=== PATIENT | male | born 1975 | race African-American/Black ===

== ENCOUNTER 2017-08-23 18:29 | Inpatient (IN) | payer OTHER ==
[2017-08-21 23:00] VITALS: BP 145/78
[~2017-08-23] VITALS: Ht 175.3 cm; Wt 114.8 kg
--- NOTE | 2017-08-23 18:34 | ED.ADGEN ---
Past History Past Medical History: Cancer, Hypertension Adult General Chief Complaint Chief Complaint ".. I am getting cellulitis again..." HPI HPI Patient is a 42 year old male from [facility] who presents with above hx and complaints of cellulitis. Pt.has had recurrent bouts of cellulitis for past 4 yrs. Pt. has erythema of veinous stasis of Lt. mobley. Pt. has 2 cm node Lt. groin. Pt. does have hx of Leukemia for past 5 yrs. Last tetanus 2009. TB check one year ago. Pt. currently at [facility]. Pt. has hypertension. No recent travel or specific ill contacts. Review of Systems Review of Systems Constitutional: Denies fever or chills [] Eyes: Denies change in visual acuity, redness, or eye pain [] HENT: Denies nasal congestion or sore throat [] Respiratory: Denies cough or shortness of breath [] Cardiovascular: No additional information not addressed in HPI [] GI: Denies abdominal pain, nausea, vomiting, bloody stools or diarrhea [] : Denies dysuria or hematuria [] Musculoskeletal: Denies back pain or joint pain [] Integument: Denies rash or skin lesions [] Lt. leg cellulitis. Lt. Groin Adenopathy Neurologic: Denies headache, focal weakness or sensory changes [] Endocrine: Denies polyuria or polydipsia [] All other systems were reviewed and found to be within normal limits, except as documented in this note. Family History Family History Non-contributor Current Medications Current Medications Current Medications Medications (Trade) Dose Ordered Sig/Juan Start Time Stop Time Status Last Admin Dose Admin Ceftriaxone Sodium 1 gm/ Sodium Chloride 50 ml @ 100 mls/hr 1X ONCE 08/23/17 18:45 08/23/17 19:14 UNV Ceftriaxone Sodium (Rocephin) 1 gm 1X ONCE 08/23/17 19:15 08/23/17 19:16 DC 08/23/17 20:14 1 GM Ketorolac Tromethamine (Toradol) 30 mg 1X ONCE 08/23/17 20:15 08/23/17 20:16 DC 08/23/17 20:10 30 MG Lactated Ringer's 1,000 ml @ 1,000 mls/hr Q1H 08/23/17 18:41 08/23/17 19:40 DC 08/23/17 19:32 1,000 MLS/HR Tetanus/ Diphtheria Toxoids Adsorbed (Tenivac Vial) 0.5 ml ONCE ONCE 08/23/17 19:15 08/23/17 19:16 DC 08/23/17 19:15 0.5 ML Trimethoprim/ Sulfamethoxazole (Bactrim Ds) 1 tab 1X ONCE 08/23/17 19:15 08/23/17 19:16 DC 08/23/17 19:15 1 TAB Allergies Allergies Allergies Coded Allergies Type Severity Reaction Last Updated Verified No Known Drug Allergies 08/23/17 No Physical Exam Physical Exam Constitutional: Moderately acute distress, non-toxic appearance. [] HENT: Normocephalic, atraumatic, bilateral external ears normal, oropharynx moist, no oral exudates, nose normal. [] Eyes: PERRLA, EOMI, conjunctiva normal, no discharge. [] Neck: Normal range of motion, no tenderness, supple, no stridor. [] Cardiovascular: Tachycardia Heart rate regular rhythm, no murmur []PMI to Lt. Lungs & Thorax: Bilateral breath sounds clear to auscultation [] Abdomen: Bowel sounds normal, soft, no tenderness, no masses, no pulsatile masses. [] Skin: Warm, dry, Lt leg erythema, . [] Veinous Stasis, Lt. lower limb cellulitis. Back: No tenderness, no CVA tenderness. [] Extremities: :Lt. leg, tenderness, no cyanosis, no clubbing, ROM intact, ankle edema. [] Neurologic: Alert and oriented X 3, normal motor function, normal sensory function, no focal deficits noted. [] Psychologic: Affect anxious, judgement normal, mood normal. [] Current Patient Data Vital Signs Vital Signs Date Time Temp Pulse Resp B/P (MAP) Pulse Ox O2 Delivery O2 Flow Rate FiO2 08/23/17 20:20 88 20 155/83 (107) 100 Room Air 08/23/17 18:29 99.8 Lab Results Laboratory Tests Test 08/23/17 19:20 08/23/17 19:33 White Blood Count 14.1 x10^3/uL (4.0-11.0) H Red Blood Count 4.68 x10^6/uL (4.30-5.70) Hemoglobin 14.7 g/dL (13.0-17.5) Hematocrit 43.5 % (39.0-53.0) Mean Corpuscular Volume 93 fL (79-100) Mean Corpuscular Hemoglobin 31 pg (25-35) Mean Corpuscular Hemoglobin Concent 34 g/dL (31-37) Red Cell Distribution Width 13.7 % (11.5-14.5) Platelet Count 179 x10^3/uL (140-400) Neutrophils (%) (Auto) 86 % (31-73) H Lymphocytes (%) (Auto) 6 % (24-48) L Monocytes (%) (Auto) 8 % (0-9) Eosinophils (%) (Auto) 0 % (0-3) Basophils (%) (Auto) 0 % (0-3) Neutrophils # (Auto) 12.1 x10^3uL (1.8-7.7) H Lymphocytes # (Auto) 0.8 x10^3/uL (1.0-4.8) L Monocytes # (Auto) 1.1 x10^3/uL (0.0-1.1) Eosinophils # (Auto) 0.0 x10^3/uL (0.0-0.7) Basophils # (Auto) 0.0 x10^3/uL (0.0-0.2) Prothrombin Time 12.7 SEC (9.4-11.4) H Prothrombin Time INR 1.2 (0.9-1.1) H PTT 28 SEC (23-33) Urine Collection Type Unknown Urine Color Yellow Urine Clarity Clear Urine pH 7.0 Urine Specific [place] 1.015 Urine Protein Neg (NEG-TRACE) Urine Glucose (UA) Neg mg/dL (NEG) Urine Ketones (Stick) Neg mg/dL (NEG) Urine Blood Neg (NEG) Urine Nitrite Neg (NEG) Urine Bilirubin Neg (NEG) Urine Urobilinogen Dipstick 0.2 mg/dL (0.2 mg/dL) Urine Leukocyte Esterase Neg (NEG) Urine RBC 1-2 /HPF (0-2) Urine WBC Occ /HPF (0-4) Urine Squamous Epithelial Cells Few /LPF Urine Bacteria 0 /HPF (0-FEW) Urine Opiates Screen Neg (NEG) Urine Methadone Screen Neg (NEG) Urine Barbiturates Neg (NEG) Urine Phencyclidine Screen Neg (NEG) Urine Amphetamine/Methamphetamine Neg (NEG) Urine Benzodiazepines Screen Neg (NEG) Urine Cocaine Screen Neg (NEG) Urine Cannabinoids Screen Neg (NEG) Urine Ethyl Alcohol Neg (NEG) Sodium Level 140 mmol/L (136-145) Potassium Level 3.6 mmol/L (3.5-5.1) Chloride Level 102 mmol/L (98-107) Carbon Dioxide Level 28 mmol/L (21-32) Anion Gap 10 (6-14) Blood Urea Nitrogen 11 mg/dL (8-26) Creatinine 1.6 mg/dL (0.7-1.3) H Estimated GFR (Cockcroft-Gault) 57.9 Glucose Level 103 mg/dL (70-99) H Lactic Acid Level 0.6 mmol/L (0.4-2.0) Calcium Level 8.9 mg/dL (8.5-10.1) Magnesium Level 1.7 mg/dL (1.8-2.4) L Total Bilirubin 0.5 mg/dL (0.2-1.0) Direct Bilirubin 0.1 mg/dL (0.0-0.2) Aspartate Amino Transferase (AST) 41 U/L (15-37) H Alanine Aminotransferase (ALT) 35 U/L (16-63) Alkaline Phosphatase 60 U/L (46-116) Creatine Kinase 1396 U/L (39-308) H Troponin I Quantitative < 0.017 ng/mL (0-0.055) C-Reactive Protein 36.9 mg/L (0-3.3) H ZN-Foa-L-Type Natriuretic Peptide 19 pg/mL (0-124) Total Protein 8.0 g/dL (6.4-8.2) Albumin 3.8 g/dL (3.4-5.0) EKG EKG My interpretation of EKG show sinus 93, Bimodal p, Low voltage. No acute finding s of GA with contralateral changes.[] Radiology/Procedures Radiology/Procedures US pending at time of admit. Course & Med Decision Making Course & Med Decision Making Pertinent Labs and Imaging studies reviewed. (See chart for details) Discussed presentation, testing and tx. plan with Dr. Johnson- will admit for further eval and tx. [] Final Impression Final Impression 1. Cellulitis[] 2. Adenopathy Lt. Groin 3. Hx of Leukemia 4. Veinous Stasis 5. Leukocytosis 6. Elevated Creat. 7. Hypomagnesium 1.7 8. Elevated C-Reative Protein 36.9 9. Elevated CK 1396 Dragon Disclaimer Dragon Disclaimer This electronic medical record was generated, in whole or in part, using a voice recognition dictation system. CHARMAINE CABRERA MD August 23, 2017 18:34
[2017-08-23] MEDS ORDERED: IV RINGERS SOLUTION,LACTATED 1,000 ML IV SCH (18:41)
[2017-08-23] MEDS ORDERED: SMZ/TMP 800/160MG TABLET. PO ONE (19:15)
[2017-08-23] MEDS ORDERED: cefTRIAXone IV Push 1 GM VIAL. IVP ONE (19:15)
[2017-08-23] MEDS ORDERED: TETANUS AND DIPHTHERIA TOX/PF 0.5 ML VIAL. VAX IM ONE (19:15)
[2017-08-23 20:02] LABS: BACTERIA,URINE 0 /HPF (0-FEW); BILIRUBIN,URINE NEG (NEG); CLARITY,URINE CLEAR; COLOR,URINE YELLOW; GLUCOSE,URINE NEG (NEG); NITRITE,URINE NEG (NEG); SQUAMOUS EPITHELIAL CELL,UR FEW /LPF; UROBILINOGEN,URINE 0.2 mg/dL (0.2 mg/dL); WBC,URINE OCC /HPF (0-4)
[2017-08-23] MEDS ORDERED: KETOROLAC 30 MG/ML VIAL. IV ONE (20:15)
[2017-08-23 20:32] LABS: BASO % 0 % (0-3); EOS % 0 % (0-3); HEMATOCRIT 43.5 % (39.0-53.0); HEMOGLOBIN 14.7 g/dL (13.0-17.5); LYMPH # 0.8 x10^3/uL (1.0-4.8); LYMPH % 6 % (24-48); MEAN CORPUSCULAR HEMOGLOBIN 31 pg (25-35); MEAN CORPUSCULAR HGB CONC 34 g/dL (31-37); MEAN CORPUSCULAR VOLUME 93 fL (79-100); MONO # 1.1 x10^3/uL (0.0-1.1); MONO % 8 % (0-9); NEUT # 12.1 x10^3uL (1.8-7.7); NEUT % 86 % (31-73); PLATELET COUNT 179 x10^3/uL (140-400); RED BLOOD COUNT 4.68 x10^6/uL (4.30-5.70); RED CELL DISTRIBUTION WIDTH 13.7 % (11.5-14.5); WHITE BLOOD COUNT 14.1 x10^3/uL (4.0-11.0)
[2017-08-23 20:47] LABS: ALBUMIN 3.8 g/dL (3.4-5.0); C REACTIVE PROTEIN 36.9 mg/L (0-3.3); CALCIUM 8.9 mg/dL (8.5-10.1); CREATININE 1.6 mg/dL (0.7-1.3); DIRECT BILIRUBIN 0.1 mg/dL (0.0-0.2); GFR 57.9; MAGNESIUM 1.7 mg/dL (1.8-2.4); POTASSIUM 3.6 mmol/L (3.5-5.1); TOTAL BILIRUBIN 0.5 mg/dL (0.2-1.0)
[2017-08-23] MEDS ORDERED: KETOROLAC 15 MG/ML VIAL. IV PRN (21:15)
[2017-08-23] MEDS ORDERED: MAGNESIUM SULFATE 2GM 50 ML IV ONE (21:15)
[2017-08-23 21:30] LABS: BARBITURATES NEG (NEG); BENZODIAZEPINES NEG (NEG); CANNABINOIDS NEG (NEG); COCAINE NEG (NEG); METHADONE NEG (NEG); OPIATES NEG (NEG); PHENCYCLIDINE NEG (NEG)
[2017-08-23 21:35] LABS: AMPHETAMINE/METHAMPHETAMINE NEG (NEG)
[2017-08-23 23:00] VITALS: BP 145/78
[2017-08-23] MEDS: ENOXAPARIN ** NOTE DOSE ** SYRINGE SQ SCH (23:23)
[2017-08-24 04:39] VITALS: BP 131/71
[2017-08-24] MEDS ORDERED: DASA100T PO (05:40)
[2017-08-24 06:22] LABS: CALCIUM 8.4 mg/dL (8.5-10.1); CREATININE 1.6 mg/dL (0.7-1.3); GFR 57.9; POTASSIUM 3.6 mmol/L (3.5-5.1)
[2017-08-24 06:36] LABS: BASO % 1 % (0-3); EOS # 0.1 x10^3/uL (0.0-0.7); EOS % 2 % (0-3); HEMATOCRIT 40.7 % (39.0-53.0); HEMOGLOBIN 13.7 g/dL (13.0-17.5); LYMPH % 13 % (24-48); MEAN CORPUSCULAR HEMOGLOBIN 32 pg (25-35); MEAN CORPUSCULAR HGB CONC 34 g/dL (31-37); MEAN CORPUSCULAR VOLUME 94 fL (79-100); MONO # 0.8 x10^3/uL (0.0-1.1); MONO % 10 % (0-9); NEUT % 75 % (31-73); PLATELET COUNT 145 x10^3/uL (140-400); RED BLOOD COUNT 4.34 x10^6/uL (4.30-5.70); RED CELL DISTRIBUTION WIDTH 14.1 % (11.5-14.5)
[2017-08-24] MEDS ORDERED: cefTRIAXone IV Push 1 GM VIAL. IVP SCH (09:00)
[2017-08-24] MEDS ORDERED: PNEUMOC CONJ VACC 23-VALENT 0.5 ML VIAL. VAX IM ONE (09:00)
[2017-08-24] MEDS ORDERED: SMZ/TMP 800/160MG TABLET. PO SCH (09:00)
[2017-08-24] MEDS ORDERED: LACTOBACILLUS RHAMNOSUS GG 1 CAPSULE. PO SCH (09:00)
[2017-08-24] MEDS: ENOXAPARIN ** NOTE DOSE ** SYRINGE SQ SCH (09:08)
[2017-08-24 09:13] VITALS: BP 154/75
[2017-08-24] MEDS ORDERED: SULF1TAB24 PO (14:23)
--- NOTE | 2017-08-24 14:43 | SSS ---
ADMIT DATE: 08/24/2017 HISTORY OF PRESENT ILLNESS: The patient is a 42-year-old -[place] male patient, who is currently in a residential house and who came to the Emergency Room with a complaint of redness, pain in his left lower extremity. He apparently is known to have recurrent bouts of cellulitis for the past 4 years. By the time he arrived to the Emergency Room, he has marked erythema and venous stasis of his left mobley and he has about 2 cm node in the left groin area, it is nontender. He was started on IV Rocephin and given oral Bactrim. He was admitted for further evaluation and treatment. 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 PAST SURGICAL HISTORY: Significant for right knee surgery. ALLERGIES: He has no known drug allergies. MEDICATIONS: He is currently on Sprycel. FAMILY HISTORY: He has 4 brothers and 2 sisters, one brother and one sister have diabetes. His father at the age of 43 because of colon cancer. Mother is still alive and has diabetes. SOCIAL HISTORY: He is , has 3 sons and 3 daughters. He continued to smoke. Currently, does not drink alcohol or recreational drugs. He used to be a heavy drinker and uses marijuana, has not had any that since 5 years ago. He is currently unemployed and lives in a residential house. PHYSICAL EXAMINATION: GENERAL: When I examined him; he looked well and was clearly in no apparent respiratory distress, pale, but no jaundice, cyanosis, or thyromegaly. No jugular venous distension. No limb edema. VITAL SIGNS: His heart rate was 94, blood pressure 154/75, temperature was 99.1, respiratory rate was 18 and oxygen saturation was 96%. HEAD, EYES, EARS, NOSE AND THROAT: Showed normocephalic, atraumatic. NECK: Supple. HEART: Showed normal first and second heart sounds with no gallop, rub or murmur. CHEST: Clear to auscultation. No crepitation or rhonchi. ABDOMEN: Distended, soft, nontender. No guarding or rigidity. No organomegaly. All hernial orifices intact. Bowel sounds normal. NEUROLOGIC: He was awake, alert, responding appropriately. Cranial nerves intact. He moves extremities without difficulty, ambulates without assistance or assistive devices. His examination of the left lower extremity show that there is swelling or redness. By the time I saw him is entirely resolved. LABORATORY DATA: Showed a white cell count of 14,000 that came down, by the time of we discharged him to 8000. His hemoglobin, hematocrit and platelets are all within normal range. His chemistry showed a serum sodium 141, potassium 3.6, chloride 106, bicarbonate 27, anion gap of 8, BUN 13, creatinine 1.6, estimated GFR was 58 mL per minute, his glucose was 98, calcium was 8.4. His prothrombin time, INR and aPTT were normal. Urinalysis was unremarkable and toxic screen was negative. ASSESSMENT AND PLAN: The patient was discharged to continue on his home medications as well as Bactrim-DS 1 tablet twice a day for 7 days DISCHARGE DIAGNOSES: 1. Left lower extremity cellulitis. 2. Chronic myeloid leukemia. 3. Hypertension. 4. Chronic kidney disease. JAQUELINE ESTEBAN MD DR: FRANCHESCA/lacho JOB#: [id number] / [id number]
[2017-08-24] MEDS ORDERED: IV RINGERS SOLUTION,LACTATED 1,000 ML IV SCH (22:00)
--- NOTE | 2017-08-24 22:06 | EKG ---
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
[2017-08-25] MEDS ORDERED: NON FORMULARY ITEM (Dasatinib (Sprycel) 100 MG) PO SCH (09:00)
== END 2017-08-24 14:45 | disposition home or self-care (01) | DRG 603 ==
LOC: ER 18:29 → ICU 20:30
PROVIDERS: ADMIT Internal Medicine; ATTEND Internal Medicine
DX: L03.116 Cellulitis of left lower limb (principal); C92.10 Chronic myeloid leukemia, BCR/ABL-positive, not having achieved remission; E83.42 Hypomagnesemia; I12.9 Hypertensive chronic kidney disease with stage 1 through stage 4 chronic kidney disease, or unspecified chronic kidney disease; N18.9 Chronic kidney disease, unspecified; I87.8 Other specified disorders of veins; R59.9 Enlarged lymph nodes, unspecified; Z80.0 Family history of malignant neoplasm of digestive organs; Z83.3 Family history of diabetes mellitus
CPT/HCPCS: 36415; 80048; 80076; 80307; 81001; 82550; 83605; 83735; 83880; 84443; 84484; 85025; 85610; 85730; 86140; 87040; 87641; 90471; 90714; 93005; 96361; 96374; 96375; 99406; 99407; G0238; J0696; J1650; J1885; J3475; J7120; 99285-25; G0479

== ENCOUNTER 2017-10-20 20:56 | Emergency (ER) | payer OTHER ==
[~2017-10-20] VITALS: Ht 172.7 cm; Wt 116.5 kg
[~2017-10-20 20:56] MED LIST: DASA100T PO; SULF1TAB24 PO
[2017-10-20] MEDS ORDERED: ASPIRIN 81 MG TAB.CHEW PO ONE (21:30)
[2017-10-20] MEDS ORDERED: IV NORMAL SALINE 1,000ML 1,000 ML IV SCH (21:30)
--- NOTE | 2017-10-20 21:35 | PHYS DOC ---
Past History Past Medical History: Cancer, Hypertension Past Surgical History: Other Alcohol Use: None Drug Use: None Adult General Chief Complaint Chief Complaint: SHORTNESS OF BREATH HPI HPI 42-year-old male presents with episode of chest pain and shortness of breath. The patient was coming out of the restroom 45 minutes prior to arrival when he began to feel dizzy and though he might pass out. He sat down and began to have a central chest pressure that radiated into his right shoulder. He also developed a pressure feeling in the right mid back that radiates through to his abdomen. He describes it as a pressure on his kidney. The dizziness, chest pressure, and shoulder pressure has resolved. He continues to have the pressure feeling in the right kidney region. 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 He was outside all day today. He was drinking Gatorade all day but admits that his urine is fairly dark. He denies nausea, vomiting, diaphoresis, constipation or diarrhea. Review of Systems Review of Systems Constitutional: Denies fever or chills [] Eyes: Denies change in visual acuity, redness, or eye pain [] HENT: Denies nasal congestion or sore throat [] Respiratory: shortness of breath [] Cardiovascular: No additional information not addressed in HPI [] GI: Denies abdominal pain, nausea, vomiting, bloody stools or diarrhea [] : Denies dysuria or hematuria [] Musculoskeletal: right sided flank pain [] Integument: Denies rash or skin lesions [] Neurologic: Denies headache, focal weakness or sensory changes [] Endocrine: Denies polyuria or polydipsia [] All other systems were reviewed and found to be within normal limits, except as documented in this note. Current Medications Current Medications Current Medications Medications (Trade) Dose Ordered Sig/[facility] Start Time Stop Time Status Last Admin Dose Admin Aspirin (Children'S Aspirin) 324 mg 1X ONCE 10/20/17 21:30 10/20/17 21:31 Sodium Chloride 1,000 ml @ 1,000 mls/hr Q1H 10/20/17 21:30 10/20/17 22:29 Allergies Allergies Allergies Coded Allergies Type Severity Reaction Last Updated Verified No Known Drug Allergies 08/23/17 No Physical Exam Physical Exam Constitutional: Well developed, well nourished, no acute distress, non-toxic appearance. [] HENT: Normocephalic, atraumatic, bilateral external ears normal, oropharynx moist, no oral exudates, nose normal. [] Eyes: PERRLA, EOMI, conjunctiva normal, no discharge. [] Neck: Normal range of motion, no tenderness, supple, no stridor. [] Cardiovascular:Heart rate regular rhythm, no murmur [] Lungs & Thorax: Bilateral breath sounds clear to auscultation [] Abdomen: Bowel sounds normal, soft, no tenderness, no masses, no pulsatile masses. [] Skin: Warm, dry, no erythema, no rash. [] Back: Right sided tenderness over upper lumbar paraspinal muscles[] Extremities: No tenderness, no cyanosis, no clubbing, ROM intact, no edema. [] Neurologic: Alert and oriented X 3, normal motor function, normal sensory function, no focal deficits noted. [] Psychologic: Affect normal, judgement normal, mood normal. [] EKG EKG Sinus rhythm, rate 71, normal axis, no ST elevations or depressions.[] Radiology/Procedures Radiology/Procedures [] Impressions: AP portable chest radiograph 10/20/2017 Clinical History: Chest pain. History of leukemia. An AP erect portable digital radiograph of the chest was obtained. No previous studies are available for comparison. The cardiac and mediastinal silhouettes are within normal limits in size and configuration. No acute pulmonary infiltrate is seen. No pleural effusion or pneumothorax is noted. The osseous structures are grossly intact. IMPRESSION: No acute abnormality is seen. Electronically signed by: Kee Rangel MD (10/20/2017 11:03 PM) [facility] [place] Course & Med Decision Making Course & Med Decision Making Pertinent Labs and Imaging studies reviewed. (See chart for details) Patient's chest x-ray is unremarkable. His EKG is unremarkable. His troponin is negative. His labs remarkable for creatinine 1.6. Review of his history shows that his creatinine has been 1.6 for some time. His urine was concentrated but there was no sign of infection. I believe the patient is somewhat dehydrated from working outside all day and this is lead to his symptoms. He is feeling better at this time after IV fluids. I reviewed all of his results with him. The patient is reassured. He is stable for discharge at this time. [] Dragon Disclaimer Dragon Disclaimer This electronic medical record was generated, in whole or in part, using a voice recognition dictation system. Departure Departure: Referrals: PCP,NO (PCP) TIEN VOSS DO Oct 20, 2017 21:35
[2017-10-20 21:38] LABS: BASO % 1 % (0-3); EOS # 0.2 x10^3/uL (0.0-0.7); EOS % 4 % (0-3); HEMATOCRIT 46.9 % (39.0-53.0); HEMOGLOBIN 15.6 g/dL (13.0-17.5); LYMPH # 2.8 x10^3/uL (1.0-4.8); LYMPH % 41 % (24-48); MEAN CORPUSCULAR HEMOGLOBIN 32 pg (25-35); MEAN CORPUSCULAR HGB CONC 33 g/dL (31-37); MEAN CORPUSCULAR VOLUME 95 fL (79-100); MONO # 0.8 x10^3/uL (0.0-1.1); MONO % 12 % (0-9); NEUT # 2.9 x10^3uL (1.8-7.7); NEUT % 43 % (31-73); PLATELET COUNT 190 x10^3/uL (140-400); RED BLOOD COUNT 4.92 x10^6/uL (4.30-5.70); RED CELL DISTRIBUTION WIDTH 13.8 % (11.5-14.5); WHITE BLOOD COUNT 6.7 x10^3/uL (4.0-11.0)
[2017-10-20 21:45] LABS: BACTERIA,URINE FEW /HPF (0-FEW); BILIRUBIN,URINE NEG (NEG); CLARITY,URINE CLEAR; COLOR,URINE STRAW; GLUCOSE,URINE NEG (NEG); NITRITE,URINE NEG (NEG); RBC,URINE OCC /HPF (0-2); SQUAMOUS EPITHELIAL CELL,UR FEW /LPF; UROBILINOGEN,URINE 0.2 mg/dL (0.2 mg/dL); WBC,URINE OCC /HPF (0-4)
[2017-10-20 21:55] LABS: ALBUMIN 3.6 g/dL (3.4-5.0); CALCIUM 9.1 mg/dL (8.5-10.1); CREATININE 1.6 mg/dL (0.7-1.3); GFR 57.9; POTASSIUM 3.4 mmol/L (3.5-5.1); TOTAL BILIRUBIN 0.3 mg/dL (0.2-1.0); TOTAL PROTEIN 7.1 g/dL (6.4-8.2)
--- NOTE | 2017-10-20 23:07 | RAD ---
AP portable chest radiograph 10/20/2017 Clinical History: Chest pain. History of leukemia. An AP erect portable digital radiograph of the chest was obtained. No previous studies are available for comparison. The cardiac and mediastinal silhouettes are within normal limits in size and configuration. No acute pulmonary infiltrate is seen. No pleural effusion or pneumothorax is noted. The osseous structures are grossly intact. IMPRESSION: No acute abnormality is seen. Electronically signed by: Kee Rangel MD (10/20/2017 11:03 PM) [facility]
[2017-10-20 23:40] VITALS: BP 151/86
--- NOTE | 2017-10-21 07:19 | EKG ---
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
== END 2017-10-20 23:45 | disposition home or self-care (01) ==
LOC: ER 20:56
DX: R07.89 Other chest pain (principal); E86.0 Dehydration; I10 Essential (primary) hypertension
CPT/HCPCS: 36415; 71045; 80053; 81001; 83880; 84484; 85025; 93005; 96360; 99285-25; J7030

== ENCOUNTER 2019-04-18 10:38 | Emergency (ER) | payer OTHER ==
[~2019-04-18] VITALS: Ht 177.8 cm; Wt 136.1 kg
[2019-04-18 11:49] VITALS: BP 181/106
--- NOTE | 2019-04-18 11:55 | RAD ---
Two-view chest dated 04/18/2019. Comparison made to 10/20/2017. Clinical data indication: Cough. FINDINGS: PA and lateral views obtained. Heart and mediastinal contours are stable. Lungs are clear. No consolidation or pleural effusion. No pneumothorax. IMPRESSION: No acute radiographic abnormality. Electronically signed by: Nile Gastelum MD (04/18/2019 11:52 AM) [facility]
[2019-04-18 12:41] LABS: BASO # 0.1 x10^3/uL (0.0-0.2); BASO % 1 % (0-3); EOS # 0.3 x10^3/uL (0.0-0.7); EOS % 4 % (0-3); HEMATOCRIT 39.5 % (39.0-53.0); HEMOGLOBIN 12.7 g/dL (13.0-17.5); LYMPH # 1.9 x10^3/uL (1.0-4.8); LYMPH % 28 % (24-48); MEAN CORPUSCULAR HEMOGLOBIN 30 pg (25-35); MEAN CORPUSCULAR HGB CONC 32 g/dL (31-37); MEAN CORPUSCULAR VOLUME 93 fL (79-100); MONO # 0.9 x10^3/uL (0.0-1.1); MONO % 14 % (0-9); NEUT # 3.7 x10^3uL (1.8-7.7); NEUT % 54 % (31-73); PLATELET COUNT 222 x10^3/uL (140-400); RED BLOOD COUNT 4.25 x10^6/uL (4.30-5.70); RED CELL DISTRIBUTION WIDTH 14.3 % (11.5-14.5); WHITE BLOOD COUNT 6.9 x10^3/uL (4.0-11.0)
[2019-04-18 12:49] LABS: CALCIUM 8.4 mg/dL (8.5-10.1); CREATININE 1.3 mg/dL (0.7-1.3); GFR 73.3; POTASSIUM 3.8 mmol/L (3.5-5.1)
[2019-04-18 12:51] LABS: BILIRUBIN,URINE NEG (NEG); CLARITY,URINE CLEAR; COLOR,URINE YELLOW; GLUCOSE,URINE NEG (NEG); NITRITE,URINE NEG (NEG); UROBILINOGEN,URINE 0.2 mg/dL (0.2 mg/dL)
[2019-04-18 12:52] LABS: BACTERIA,URINE 0 /HPF (0-FEW); RBC,URINE OCC /HPF (0-2); SQUAMOUS EPITHELIAL CELL,UR OCC /LPF; WBC,URINE OCC /HPF (0-4)
[2019-04-18 12:55] LABS: ALBUMIN 3.3 g/dL (3.4-5.0); ALBUMIN/GLOBULIN RATIO 0.9 (1.0-1.7); TOTAL BILIRUBIN 0.2 mg/dL (0.2-1.0)
[2019-04-18] MEDS ORDERED: BENZ100C PO (14:00)
[2019-04-18] MEDS ORDERED: AZIT250T PO (14:00)
--- NOTE | 2019-04-18 14:01 | PHYS DOC ---
Past History Past Medical History: Cancer, Hypertension Additional Past Medical Histor: leukemia in remission Past Surgical History: No Surgical History Alcohol Use: None Drug Use: None Adult General Chief Complaint Chief Complaint: COUGH HPI HPI Patient is a 43-year-old male who presented to ER today for evaluation of cough with green sputum, nasal congestion for the last 3 days. Patient said he coughed so much that his right side chest hurt, it hurts worse when he coughs or taking a deep breath. Patient denies any nausea or vomiting, no headache, no neck pain. All other ROS is negative unless otherwise noted in HPI Review of Systems Review of Systems See above Allergies Allergies Allergies Coded Allergies Type Severity Reaction Last Updated Verified No Known Drug Allergies 08/23/17 No Physical Exam Physical Exam See above Constitutional: Well developed, well nourished, no acute distress, non-toxic appearance. [] HENT: Normocephalic, atraumatic, bilateral external ears normal, oropharynx moist, no oral exudates, nose normal. [] Eyes: PERRLA, EOMI, conjunctiva normal, no discharge. [] Neck: Normal range of motion, no tenderness, supple, no stridor. [] Cardiovascular:Heart rate regular rhythm, no murmur [] Lungs & Thorax: Bilateral breath sounds clear to auscultation [] Abdomen: Bowel sounds normal, soft, no tenderness, no masses, no pulsatile masses. [] Skin: Warm, dry, no erythema, no rash. [] Back: No tenderness, no CVA tenderness. [] Extremities: No tenderness, no cyanosis, no clubbing, ROM intact, no edema. [] Neurologic: Alert and oriented X 3, normal motor function, normal sensory function, no focal deficits noted. [] Psychologic: Affect normal, judgement normal, mood normal. [] Current Patient Data Vital Signs Vital Signs Date Time Temp Pulse Resp B/P (MAP) Pulse Ox O2 Delivery O2 Flow Rate FiO2 04/18/19 12:28 71 18 100 04/18/19 11:49 98.4 Room Air Lab Results Laboratory Tests Test 04/18/19 12:19 04/18/19 12:25 Urine Collection Type Unknown Urine Color Yellow Urine Clarity Clear Urine pH 5.5 Urine Specific [place] 1.025 Urine Protein Neg (NEG-TRACE) Urine Glucose (UA) Neg mg/dL (NEG) Urine Ketones (Stick) Neg mg/dL (NEG) Urine Blood Neg (NEG) Urine Nitrite Neg (NEG) Urine Bilirubin Neg (NEG) Urine Urobilinogen Dipstick 0.2 mg/dL (0.2 mg/dL) Urine Leukocyte Esterase Neg (NEG) Urine RBC Occ /HPF (0-2) Urine WBC Occ /HPF (0-4) Urine Squamous Epithelial Cells Occ /LPF Urine Bacteria 0 /HPF (0-FEW) White Blood Count 6.9 x10^3/uL (4.0-11.0) Red Blood Count 4.25 x10^6/uL (4.30-5.70) L Hemoglobin 12.7 g/dL (13.0-17.5) L Hematocrit 39.5 % (39.0-53.0) Mean Corpuscular Volume 93 fL (79-100) Mean Corpuscular Hemoglobin 30 pg (25-35) Mean Corpuscular Hemoglobin Concent 32 g/dL (31-37) Red Cell Distribution Width 14.3 % (11.5-14.5) Platelet Count 222 x10^3/uL (140-400) Neutrophils (%) (Auto) 54 % (31-73) Lymphocytes (%) (Auto) 28 % (24-48) Monocytes (%) (Auto) 14 % (0-9) H Eosinophils (%) (Auto) 4 % (0-3) H Basophils (%) (Auto) 1 % (0-3) Neutrophils # (Auto) 3.7 x10^3uL (1.8-7.7) Lymphocytes # (Auto) 1.9 x10^3/uL (1.0-4.8) Monocytes # (Auto) 0.9 x10^3/uL (0.0-1.1) Eosinophils # (Auto) 0.3 x10^3/uL (0.0-0.7) Basophils # (Auto) 0.1 x10^3/uL (0.0-0.2) Sodium Level 143 mmol/L (136-145) Potassium Level 3.8 mmol/L (3.5-5.1) Chloride Level 108 mmol/L (98-107) H Carbon Dioxide Level 29 mmol/L (21-32) Anion Gap 6 (6-14) Blood Urea Nitrogen 10 mg/dL (8-26) Creatinine 1.3 mg/dL (0.7-1.3) Estimated GFR (Cockcroft-Gault) 73.3 BUN/Creatinine Ratio 8 (6-20) Glucose Level 96 mg/dL (70-99) Calcium Level 8.4 mg/dL (8.5-10.1) L Total Bilirubin 0.2 mg/dL (0.2-1.0) Aspartate Amino Transferase (AST) 39 U/L (15-37) H Alanine Aminotransferase (ALT) 50 U/L (16-63) Alkaline Phosphatase 43 U/L (46-116) L Total Protein 7.0 g/dL (6.4-8.2) Albumin 3.3 g/dL (3.4-5.0) L Albumin/Globulin Ratio 0.9 (1.0-1.7) L Lipase 117 U/L (73-393) EKG EKG [] Radiology/Procedures Radiology/[place] [address] IMAGING REPORT Signed PATIENT: BRAYDEN VELASQUEZ ACCOUNT: [id number] : 1975 LOCATION: ER AGE: 43 SEX: M EXAM STATUS: REG ER ORD. PHYSICIAN: BENNETT BAUTISTA DO REASON: cough PROCEDURE: CHEST PA & LATERAL Two-view chest dated 04/18/2019. Comparison made to 10/20/2017. Clinical data indication: Cough. FINDINGS: PA and lateral views obtained. Heart and mediastinal contours are stable. Lungs are clear. No consolidation or pleural effusion. No pneumothorax. IMPRESSION: No acute radiographic abnormality. Electronically signed by: Nile Gastelum MD (04/18/2019 11:52 AM) [id number] DICTATED AND SIGNED BY: NILE GASTELUM MD DATE: 04/18/19 1152 CC: PCP,CHALO; BENNETT BAUTISTA DO ~ Course & Med Decision Making Course & Med Decision Making Pertinent Labs and Imaging studies reviewed. (See chart for details) [] Dragon Disclaimer Dragon Disclaimer This electronic medical record was generated, in whole or in part, using a voice recognition dictation system. Departure Departure: Impression: Primary Impression: Bronchitis Disposition: HOME, SELF-CARE Condition: STABLE Referrals: PCP,NO (PCP) follow up with your doctor next week Patient Instructions: Acute Bronchitis Additional Instructions: Thank you for visiting our Emergency Department. We appreciate you trusting us with your care. If any additional problems come up don't hesitate to return to visit us. Please follow up with your primary care provider so they can plan additional care if needed and know about the problem that you had. If symptoms worsen come back to the Emergency Department. Any concerning symptoms that start such as chest pain, shortness of air, weakness or numbness on one side of the body, running high fevers or any other concerning symptoms return to the ER. Scripts Benzonatate (TESSALON PERLE) 100 Mg Capsule 1 CAP PO TID for cough, #21 CAP Prov: BENNETT BAUTISTA DO 04/18/19 Azithromycin (ZITHROMAX) 250 Mg Tablet 1 PKG PO UD for bronchitis, #6 TAB Prov: BENNETT BAUTISTA DO 04/18/19 BENNETT BAUTISTA DO Apr 18, 2019 14:00
== END 2019-04-18 14:24 | disposition home or self-care (01) ==
LOC: ER 10:38
DX: J40 Bronchitis, not specified as acute or chronic (principal); I10 Essential (primary) hypertension
CPT/HCPCS: 36415; 71046; 80053; 81001; 83690; 85025; 99285

== ENCOUNTER 2019-07-09 14:55 | Emergency (ER) | payer SELFPAY ==
[~2019-07-09] VITALS: Ht 177.8 cm; Wt 142.6 kg
[~2019-07-09 14:55] MED LIST changes: +AZIT250T PO; +BENZ100C PO
[2019-07-09] MEDS: IV NORMAL SALINE 1,000ML 1,000 ML IV SCH (15:20)
[2019-07-09 15:38] LABS: BASO % 1 % (0-3); CREATININE 1.5 mg/dL (0.7-1.3); EOS # 0.3 x10^3/uL (0.0-0.7); EOS % 5 % (0-3); GFR 62.1; HEMATOCRIT 46.4 % (39.0-53.0); HEMOGLOBIN 15.2 g/dL (13.0-17.5); LYMPH # 2.1 x10^3/uL (1.0-4.8); LYMPH % 40 % (24-48); MEAN CORPUSCULAR HEMOGLOBIN 30 pg (25-35); MEAN CORPUSCULAR HGB CONC 33 g/dL (31-37); MEAN CORPUSCULAR VOLUME 92 fL (79-100); MONO # 0.5 x10^3/uL (0.0-1.1); MONO % 10 % (0-9); NEUT # 2.3 x10^3uL (1.8-7.7); NEUT % 44 % (31-73); PLATELET COUNT 201 x10^3/uL (140-400); POTASSIUM 3.5 mmol/L (3.5-5.1); RED BLOOD COUNT 5.07 x10^6/uL (4.30-5.70); RED CELL DISTRIBUTION WIDTH 14.4 % (11.5-14.5); WHITE BLOOD COUNT 5.2 x10^3/uL (4.0-11.0)
--- NOTE | 2019-07-09 15:39 | RAD ---
Chest AP portable at 1520: Reason for examination: Chest pain. Comparison is made to previous study dated 04/18/2019. The heart size is normal. Mediastinum is unremarkable. Lung irving are clear. No acute bony abnormality is seen. IMPRESSION: No acute cardiopulmonary disease evident. Electronically signed by: Arely Douglass MD (07/09/2019 3:36 PM) [id number]
--- NOTE | 2019-07-09 15:49 | PHYS DOC ---
Past History Past Medical History: Bronchitis, Cancer, Hypertension Additional Past Medical Histor: leukemia in remission Past Surgical History: No Surgical History Alcohol Use: None Drug Use: None General Adult EDM: Chief Complaint: CHEST PAIN HPI: HPI: Patient is a 43 year old male who presents with complaint of chest pain. The patient states that his symptoms started earlier this afternoon at approximately 1300. Notes that he was having sharp pain along the left side of his chest upon onset of symptoms. Patient states after waiting approximately an hour, he called EMS. Patient brought to the emergency department by EMS. Was administered 324 mg of aspirin and was given nitroglycerin. The patient states that his blood pressure was found to be above 200 systolic when he was evaluated. States after the nitroglycerin his pain went completely away and he is feeling much better at this time. Denies any shortness of breath, fever, na usea, vomiting, diaphoresis, or lower extremity swelling. Has no known history of heart disease. Does have history of hypertension. Currently on amlodipine for treatment of hypertension. Patient states he has not been taking the medication every day but did take a dose earlier today. Review of Systems: Review of Systems: Constitutional: Denies fever or chills Eyes: Denies change in visual acuity HENT: Denies nasal congestion or sore throat Respiratory: Denies cough or shortness of breath Cardiovascular: Chest pain, denies edema GI: Denies abdominal pain, nausea, vomiting, bloody stools or diarrhea : Denies dysuria Musculoskeletal: Denies back pain or joint pain Integument: Denies rash Neurologic: Denies headache, focal weakness or sensory changes Endocrine: Denies polyuria or polydipsia Lymphatic: Denies swollen glands Heart Score: HEART Score for Chest Pain: HEART Score for Chest Pain Response (Comments) Value History Moderately Suspicious 1 ECG Normal 0 Age < 45 0 Risk Factors >3 Risk Factors or Hx CAD 2 Total 3 Risk Factors: Risk Factors: DM, Current or recent (<one month) smoker, HTN, HLP, family history of CAD, obesity. Risk Scores: Score 0 - 3: 2.5% MACE over next 6 weeks - Discharge Home Score 4 - 6: 20.3% MACE over next 6 weeks - Admit for Clinical Observation Score 7 - 10: 72.7% MACE over next 6 weeks - Early Invasive Strategies Current Medications: Current Meds: Current Medications Medications (Trade) Dose Ordered Sig/Juan Start Time Stop Time Status Last Admin Dose Admin Sodium Chloride 1,000 ml @ 1,000 mls/hr Q1H 07/09/19 15:15 07/09/19 16:14 07/09/19 15:20 1,000 MLS/HR Allergies: Allergies: Allergies Coded Allergies Type Severity Reaction Last Updated Verified No Known Drug Allergies 08/23/17 No Physical Exam: PE: Constitutional: Alert, obese, afebrile, no acute distress. [] HENT: Normocephalic, atraumatic, bilateral external ears normal, oropharynx moist, no oral exudates, nose normal. [] Eyes: PERRLA, EOMI, conjunctiva normal, no discharge. [] Neck: Normal range of motion, no tenderness, supple, no stridor. [] Cardiovascular:Heart rate regular rhythm, no murmur [] Lungs & Thorax: Bilateral breath sounds clear to auscultation [] Abdomen: Bowel sounds normal, soft, no tenderness, no masses, no pulsatile masses. [] Skin: Warm, dry, no erythema, no rash. [] Back: No tenderness, no CVA tenderness. [] Extremities: No tenderness, no cyanosis, no clubbing, ROM intact, no edema. [] Neurologic: Alert and oriented X 3, normal motor function, normal sensory function, no focal deficits noted. [] Current Patient Data: Labs: Laboratory Tests Test 07/09/19 15:15 Sodium Level 139 mmol/L (136-145) Potassium Level 3.5 mmol/L (3.5-5.1) Chloride Level 104 mmol/L (98-107) Carbon Dioxide Level 28 mmol/L (21-32) Anion Gap 7 (6-14) Blood Urea Nitrogen 12 mg/dL (8-26) Creatinine 1.5 mg/dL (0.7-1.3) H Estimated GFR (Cockcroft-Gault) 62.1 BUN/Creatinine Ratio 8 (6-20) Glucose Level 114 mg/dL (70-99) H Calcium Level 9.0 mg/dL (8.5-10.1) Magnesium Level Pending Total Bilirubin Pending Aspartate Amino Transferase (AST) Pending Alanine Aminotransferase (ALT) Pending Alkaline Phosphatase Pending Creatine Kinase Pending Creatine Kinase MB (Mass) Pending Creatine Kinase MB Relative Index Pending Total Protein Pending Albumin Pending Albumin/Globulin Ratio Pending Vital Signs: Vital Signs Date Time Temp Pulse Resp B/P (MAP) Pulse Ox O2 Delivery O2 Flow Rate FiO2 07/09/19 14:55 98.6 79 12 143/67 (92) 94 Room Air EKG: EKG: Interpreted by me: Heart rate 81, sinus rhythm, normal axis, PVC noted, normal intervals, no acute ST/T wave abnormalities present [] Radiology/Procedures: Radiology/Procedures: [address] [address] IMAGING REPORT Signed PATIENT: BRAYDEN VELASQUEZ ACCOUNT: [id number] : 1975 LOCATION: ER AGE: 43 SEX: M EXAM STATUS: REG ER ORD. PHYSICIAN: BRYON MONTOYA MD REASON: chest pain PROCEDURE: PORTABLE CHEST 1V Chest AP portable at 1520: Reason for examination: Chest pain. Comparison is made to previous study dated 04/18/2019. The heart size is normal. Mediastinum is unremarkable. Lung irving are clear. No acute bony abnormality is seen. IMPRESSION: No acute cardiopulmonary disease evident. Electronically signed by: Sammy Silvestre MD (07/09/2019 3:36 PM) [id number] DICTATED AND SIGNED BY: SAMMY SILVESTRE MD DATE: 07/09/19 1536 CC: BRYON MONTOYA MD; PCP,NO ~ [] Course & Med Decision Making: Course & Med Decision Making Pertinent Labs and Imaging studies reviewed. (See chart for details) Patient remained chest pain-free in the emergency department during his entire evaluation. Patient had 2 sets of cardiac troponins drawn which were negative in the emergency department. Patient did have mildly elevated CK levels which trended down on the repeat draw. Patient's blood pressure has also remained stable. Patient heart score is 3 which places patient in low risk category for major acute cardiac event. Patient is appropriate for discharge at this time. Advised to remain compliant with oral blood pressure medication. Referred to Dr. Ibarra for follow-up in the next 2 days for reevaluation. Advised return the emergency department for any worsening symptoms. Patient voiced understanding and agreement with treatment plan. [] Dragon Disclaimer: Dragon Disclaimer: This electronic medical record was generated, in whole or in part, using a voice recognition dictation system. Departure Departure: Impression: Primary Impression: Chest pain Qualified Codes: R07.9 - Chest pain, unspecified Additional Impression: Hypertension Qualified Codes: I10 - Essential (primary) hypertension Disposition: HOME, SELF-CARE Condition: IMPROVED Referrals: PCP,CHALO (PCP) JUAN IBARRA MD Patient Instructions: Chest Pain (Nonspecific), Hypertension Additional Instructions: Follow-up with Dr. Ibarra of cardiology in the next 2 days for reevaluation of your chest pain. Return to the emergency department for any worsening symptoms. BRYON MONTOYA MD Jul 09, 2019 15:49
[2019-07-09 15:54] LABS: ALBUMIN 3.7 g/dL (3.4-5.0); TOTAL BILIRUBIN 0.3 mg/dL (0.2-1.0); TOTAL PROTEIN 7.4 g/dL (6.4-8.2)
[2019-07-09 15:55] LABS: BARBITURATES NEG (NEG); BENZODIAZEPINES NEG (NEG); CANNABINOIDS POS (NEG); COCAINE NEG (NEG); METHADONE NEG (NEG); OPIATES NEG (NEG); PHENCYCLIDINE NEG (NEG)
[2019-07-09 15:57] LABS: AMPHETAMINE/METHAMPHETAMINE NEG (NEG)
[2019-07-09 16:07] LABS: BACTERIA,URINE 0 /HPF (0-FEW); BILIRUBIN,URINE NEG (NEG); CLARITY,URINE CLEAR; COLOR,URINE YELLOW; GLUCOSE,URINE NEG (NEG); NITRITE,URINE NEG (NEG); SQUAMOUS EPITHELIAL CELL,UR FEW /LPF; UROBILINOGEN,URINE 0.2 mg/dL (0.2 mg/dL)
--- NOTE | 2019-07-09 18:18 | EKG ---
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
[2019-07-09 18:30] VITALS: BP 146/77
== END 2019-07-09 18:30 | disposition home or self-care (01) ==
LOC: ER 14:55
DX: R07.89 Other chest pain (principal); I10 Essential (primary) hypertension
CPT/HCPCS: 36415; 71045; 80053; 80307; 81001; 82553; 83735; 84484; 85025; 85379; 87086; 93005; 99285; J7030